=== PATIENT | female | born 1975 | race Caucasian/White ===

== ENCOUNTER 2018-04-21 05:13 | Inpatient (IN) ==
--- NOTE | 2018-04-14 16:19 | HISTORY AND PHYSICAL ---
HISTORY OF PRESENT ILLNESS: Patient is a 42-year-old white female, G3, P2, who will be at 39 and 1/7 weeks gestation with a history of previous x2. The patient also expressed desire for permanent sterilization. The patient has signed Medicaid tubal papers. 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 PAST SURGICAL HISTORY: x2. PAST OBSTETRICAL HISTORY: G3, P2, x2. GYNECOLOGICAL HISTORY: Menarche at age 11. FAMILY HISTORY: Significant for myocardial infarction, as well as diabetes mellitus. SOCIAL HISTORY: Tobacco use none. Alcohol use none. MEDICATIONS: vitamins. ALLERGIES: No known drug allergies. PHYSICAL EXAMINATION: HEIGHT/WEIGHT: Height 5 feet 0 inches, weight 211 pounds. VITAL SIGNS: Blood pressure 143/85, pulse of 85, respirations 20. HEART RATE: 145. HEENT: Pupils equal, round, reactive to light and accommodation. Extraocular movements intact. Oropharynx clear. NECK: Supple. No thyromegaly. LUNGS: Clear to auscultation. HEART: Regular rate and rhythm. ABDOMEN: Gravid nontender. EXTREMITIES: Right arm with limited function, but with mobility, due to a brachial plexus injury. Lower extremities with mild 1+ edema bilaterally and 2+ DTRs bilaterally. ASSESSMENT AND PLAN: A 42-year-old, white female, 3, para 2, at 39 and 1/7 weeks with a history of previous section x2, for elective repeat section and for tubal ligation. Patient counseled about the risks of the surgery, including bleeding, infection, bowel or bladder injury. Patient also counseled about the permanency of tubal ligation, failure rate of 2 to 4 per 1000, as well as the availability of reversible alternatives, such as IUD, control pills, patches, etc. Patient scheduled for section on 04/21/2018. cc: David Landa III, MD
[2018-04-14 17:22] LABS: BASO# 0.03 X1000 (0.0-0.2); BASO% 0.3 % (0.0-0.8); EOS# 0.08 X1000 (0.0-0.7); EOS% 0.9 % (0.0-10.0); HEMATOCRIT 37.5 % (37.0-47.0); HEMOGLOBIN 12.8 g/dL (12.0-16.0); IMM GRAN# 0.07 X1000 (0.0-0.04); IMM GRAN% 0.8 % (0.0-0.5); LYMPH# 1.35 X1000 (1.2-3.4); LYMPH% 14.9 % (20.5-51.1); MCH 30.2 PG (27-31); MCHC 34.1 g/dL (33-37); MCV 88.4 FL (81-99); MONO# 0.31 X1000 (0.11-0.59); MONO% 3.4 % (1.7-9.3); MPV 9.7 FL (7.4-10.4); NEUT# 7.24 X1000 (1.4-6.5); NEUT% 79.7 % (42.2-75.2); PLT 206 X1000 (130-400); RBC 4.24 XMIL (4.2-5.4); RDW 14.3 % (11.5-14.5); WBC 9.08 X1000 (4.8-10.8)
[2018-04-21] MEDS ORDERED: PEPCID PO ONE (05:32)
[2018-04-21] MEDS ORDERED: KEFZOL 1 GM/D5W 1 GM/50 ML IVPB IV PRN (05:32)
[2018-04-21] MEDS: LR 1,000 ML IV SCH ×2 (06:05→06:30)
[2018-04-21 06:17] LABS: URINE SOURCE VOIDED
[2018-04-21 06:20] LABS: BASO# 0.03 X1000 (0.0-0.2); BASO% 0.3 % (0.0-0.8); EOS% 1.1 % (0.0-10.0); HEMATOCRIT 36.5 % (37.0-47.0); HEMOGLOBIN 12.3 g/dL (12.0-16.0); IMM GRAN# 0.07 X1000 (0.0-0.04); IMM GRAN% 0.8 % (0.0-0.5); LYMPH# 1.72 X1000 (1.2-3.4); LYMPH% 18.5 % (20.5-51.1); MCH 29.9 PG (27-31); MCHC 33.7 g/dL (33-37); MCV 88.6 FL (81-99); MONO# 0.53 X1000 (0.11-0.59); MONO% 5.7 % (1.7-9.3); MPV 9.9 FL (7.4-10.4); NEUT# 6.85 X1000 (1.4-6.5); NEUT% 73.6 % (42.2-75.2); PLT 211 X1000 (130-400); RBC 4.12 XMIL (4.2-5.4); RDW 14.4 % (11.5-14.5)
[2018-04-21 06:22] LABS: BILIRUBIN URINE NEGATIVE (NEGATIVE); BLOOD URINE TRACE (NEGATIVE); CLARITY CLEAR (CLEAR); COLOR YELLOW; GLUCOSE URINE NEGATIVE (NEGATIVE); KETONE URINE TRACE mg/dL (NEGATIVE); LEUKOCYTES URINE TRACE (NEGATIVE); NITRITE URINE NEGATIVE (NEGATIVE); PROTEIN URINE TRACE mg/dL (NEGATIVE); UROBILINOGEN URINE NORMAL
[2018-04-21] MEDS ORDERED: ZOFRAN ONE (06:29)
[2018-04-21] MEDS ORDERED: SODIUM CHLORIDE 0.9% 10 ML ONE ×2 (06:29→06:30)
[2018-04-21] MEDS ORDERED: PITOCIN ONE ×2 (06:29→08:01)
[2018-04-21] MEDS ORDERED: NEO-SYNEPHRINE ONE (06:29)
[2018-04-21 06:31] LABS: UR AMPHETAMINES QUAL NONE DETECTED (NONE DETECT); UR BARBITUATES QUAL NONE DETECTED (NONE DETECT); UR BENZODIAZEPIN QUAL NONE DETECTED (NONE DETECT); UR CANNABINOIDS QUAL NONE DETECTED (NONE DETECT); UR COCAINE QUAL NONE DETECTED (NONE DETECT); UR METHADONE QUAL NONE DETECTED (NONE DETECT); UR METHAMPHETAMINE QUAL NONE DETECTED (NONE DETECT); UR OPIATES QUAL NONE DETECTED (NONE DETECT); UR OXYCODONE QUAL NONE DETECTED (NONE DETECT); UR PCP QUAL NONE DETECTED (NONE DETECT); UR PROPOXYPHENE QUAL NONE DETECTED (NONE DETECT); UR TCA QUAL NONE DETECTED (NONE DETECT)
[2018-04-21] MEDS ORDERED: DURAMORPH ONE (06:36)
[2018-04-21] MEDS ORDERED: ATROPINE ONE (07:33)
[2018-04-21] MEDS ORDERED: TORADOL ONE (08:06)
[2018-04-21] MEDS ORDERED: DEMEROL IM PRN (08:21)
[2018-04-21] MEDS ORDERED: DULCOLAX PR PRN (08:21)
[2018-04-21] MEDS ORDERED: MYLICON PO PRN (08:21)
[2018-04-21] MEDS ORDERED: M-M-R II VACCINE SUBQ ONE (08:21)
[2018-04-21] MEDS ORDERED: PHENERGAN IM PRN (08:21)
[2018-04-21] MEDS ORDERED: MOTRIN PO PRN (08:21)
[2018-04-21] MEDS ORDERED: PITOCIN IM PRN (08:21)
[2018-04-21] MEDS ORDERED: HYDROXYZINE IM PRN (08:21)
[2018-04-21] MEDS ORDERED: BOOSTRIX VACCINE IM ONE (08:21)
[2018-04-21] MEDS ORDERED: NORCO-10 PO PRN (08:21)
[2018-04-21] MEDS ORDERED: AMBIEN PO PRN (08:21)
[2018-04-21] MEDS ORDERED: DEMEROL PO PRN ×2 (08:21)
[2018-04-21] MEDS ORDERED: ATARAX PO PRN (08:21)
[2018-04-21] MEDS ORDERED: NORCO-5 PO PRN (08:21)
[2018-04-21] MEDS ORDERED: PITOCIN 20 UNITS/NS 20 UNITS/1,000 ML IV.SOLN IV ONE (08:21)
[2018-04-21] MEDS ORDERED: PITOCIN 10 UNITS/LR 10 UNIT/1,000 ML IV.SOLN IV SCH (08:30)
--- NOTE | 2018-04-21 08:46 | OPERATIVE NOTE ---
PROCEDURE DATE: 04/21/2018 PREOPERATIVE DIAGNOSIS: Intrauterine at 39 and 1/7 weeks with history of section x2, for a repeat low-transverse section and patient desires for permanent sterilization. POSTOPERATIVE DIAGNOSES: 1. Intrauterine at 39 and 1/7 weeks with history of section x2, for a repeat low-transverse section and patient desires for permanent sterilization. 2. Operative delivery of a male , 7 pounds 7 ounces, with Apgars of 9 and 10, at 0725 on 04/21/2018. PROCEDURE PERFORMED: Repeat low-transverse section and bilateral tubal ligation. SURGEON: David Landa III, MD. LACE BURN OUT TENDER: Wlil Duncan MD. ANESTHESIA: Spinal, Dr. Schilling. FINDINGS: Normal-appearing uterus, tubes, and ovaries. Adhesions involving the omentum, bladder, ovaries, and tubes. COMPLICATIONS: None. ESTIMATED BLOOD LOSS: 600 mL. SPECIMENS REMOVED: Right and left fallopian tube segments. DRAINS: Lopez to straight drain. COUNTS: All counts were correct x3. INDICATIONS: Patient is a 42-year-old, white female, G 3, P 2, who is at 39 and 1/7 weeks with a history of prior section x2, for a repeat section. Patient also expressed a desire for permanent sterilization. After delivery, we will do tubal ligation. Patient was counseled about the risks of surgery including bleeding, infection, bowel or bladder injury. Patient also counseled about the permanency of tubal ligation, failure rate of 2-05/999, as well as the availability of reversible alternatives such as IUD, control pills, patches, etc. DESCRIPTION OF PROCEDURE: The patient was taken to the labor and delivery OR. Spinal anesthesia was placed and the patient was placed in a supine position with a roll under her right hip. She was then prepped and draped in a sterile fashion, with placement of a Lopez catheter. Adequate anesthesia was noted by using Allis clamps on the skin. Then a Pfannenstiel skin incision was made on the lower abdomen using a scalpel. This was taken down sharply to the fascial layer. A small julisa was made in the rectus fascia. This was then extended bilaterally by curved Heck scissors, and then blunt and sharp dissection of the superior and inferior aspects of the rectus fascia was accomplished with blunt and sharp dissection. Dissection at the rectus fascia was performed using Heck and Metzenbaum scissors, and entry into the abdominal cavity. Upon entry, it was noted that there was omentum present on the anterior abdominal wall, dissecting the peritoneal incision superiorly and inferiorly with care taken to avoid the bladder. Bladder reflection was created using Metzenbaum scissors. Bladder blade was then placed into the abdominal cavity. A transverse incision was made on the lower uterine segment and entry into the amniotic cavity was accomplished. Clear fluid was noted. The head was then elevated toward the hysterotomy site and with gentle fundal pressure, the head was delivered, bulb suction of the nose and mouth, and then the rest the body was delivered atraumatically with gentle fundal pressure. A double nuchal cord was noted at the time of delivery and was easily reduced. Upon delivery, the umbilical cord was clamped twice and cut. was handed to the nursery nurse in attendance for delivery. Cord blood samples were obtained at this time. Placenta was then manually extracted. The uterus was then exteriorized. A wet lap was placed around the uterus. A dry lap was then used to curette the uterine cavity of clots and debris. The uterine incision was then closed using 0 chromic in a running, locking fashion x1. Good hemostasis was noted. Attention was then turned to the right fallopian tube which was grasped near the isthmus with a Tucker clamp. Small hole was made in the mesosalpinx using electrocautery and #1 plain suture was then used to ligate a portion of the fallopian tube. This was excised using Metzenbaum scissors and handed off as a specimen for pathology. The edges of the fallopian tube were then touched with electrocautery. Good hemostasis was noted. Attention was then turned to the left fallopian tube which was grasped near the isthmus. A small hole was made in the mesosalpinx using electrocautery and #1 plain was then used to ligate a portion of the fallopian tube. This was then excised using Metzenbaum scissors and handed off for specimen to pathology. The edges of the fallopian tube were then touched with electrocautery and, once again, good hemostasis was noted. The posterior cul-de-sac was then irrigated copiously. The uterus was then replaced back into the abdominal cavity. The pericolic gutters were cleansed with a moistened lap sponges. Good hemostasis was noted. Inspection of the uterine incision and bladder reflection also showed good hemostasis. The peritoneal layer was then closed with 2-0 chromic in a running fashion x1. The fascial layer was then closed using 0 PDS in a running fashion x1. The subcutaneous layer was irrigated with saline and then electrocautery was used to obtain hemostasis. The skin was then reapproximated using marvin. Patient tolerated the procedure well and was taken to the recovery room in stable condition. All counts were correct x3. cc: David Landa III, MD
[2018-04-21] MEDS ORDERED: BENADRYL IV PRN (12:07)
[2018-04-21] MEDS ORDERED: ZOFRAN ODT PO PRN (12:07)
[2018-04-21] MEDS ORDERED: ZOFRAN IV PRN ×2 (12:07)
[2018-04-21] MEDS ORDERED: NARCAN INJ PRN (12:07)
[2018-04-21] MEDS: MYLICON PO SCH ×2 (12:26→21:09)
[2018-04-21] MEDS: TORADOL IV SCH ×2 (13:29→20:02)
[2018-04-21] MEDS: PRECARE PO SCH (14:00)
[2018-04-21] MEDS: PITOCIN 10 UNITS/NS 1,000 ML IV SCH (16:22)
[2018-04-21] MEDS: PERICOLACE PO SCH (21:10)
[2018-04-22] MEDS: PITOCIN 10 UNITS/NS 1,000 ML IV SCH (00:15)
[2018-04-22] MEDS: TORADOL IV SCH (02:20)
[2018-04-22 06:12] LABS: BASO# 0.02 X1000 (0.0-0.2); BASO% 0.2 % (0.0-0.8); EOS# 0.07 X1000 (0.0-0.7); EOS% 0.6 % (0.0-10.0); HEMATOCRIT 35.1 % (37.0-47.0); HEMOGLOBIN 11.6 g/dL (12.0-16.0); IMM GRAN# 0.05 X1000 (0.0-0.04); IMM GRAN% 0.4 % (0.0-0.5); LYMPH# 1.14 X1000 (1.2-3.4); LYMPH% 10.2 % (20.5-51.1); MCV 90.7 FL (81-99); MONO# 0.49 X1000 (0.11-0.59); MONO% 4.4 % (1.7-9.3); MPV 10.3 FL (7.4-10.4); NEUT% 84.2 % (42.2-75.2); PLT 181 X1000 (130-400); RBC 3.87 XMIL (4.2-5.4); RDW 14.7 % (11.5-14.5); WBC 11.17 X1000 (4.8-10.8)
[2018-04-22] MEDS ORDERED: LR 1,000 ML IV SCH (08:21)
[2018-04-22] MEDS: PRECARE PO SCH (09:17)
[2018-04-22] MEDS: MYLICON PO SCH ×7 (09:18→20:59)
[2018-04-22] MEDS: PERICOLACE PO SCH (20:59)
[2018-04-23 08:08] VITALS: BP 148/74
[2018-04-23] MEDS ORDERED: FLU VACCINE IM ONE (08:45)
[2018-04-23] MEDS: PRECARE PO SCH (09:10)
[2018-04-23] MEDS: MYLICON PO SCH ×2 (09:11)
--- NOTE | 2018-04-23 20:59 | DISCHARGE SUMMARY ---
ADMISSION DATE: 04/21/2018 DISCHARGE DATE: 04/23/2018 DISCHARGE DIAGNOSES: 1. A 39-week gestation. 2. Prior section. 3. Desire for permanent sterilization. PROCEDURES: Repeat low transverse section with tubal ligation. SUMMARY: A 42-year-old 3, para 2 was admitted at 39 weeks gestation for repeat section with BTL. Her procedure was uncomplicated. Her course was uncomplicated. She was delivered of a male , weight 7 pounds 7 ounces. scores 9 and 10. On the day of discharge her fundus was nontender. Her incision was clean and dry, with marvin intact. She is now discharged home in good condition on the morning of postoperative day #2. DIET: Regular. ACTIVITY: Pelvic rest. MEDICATIONS: Sturgeon 5/325 one p.o. q. 4 hours p.r.n., #24. FOLLOWUP: With Dr. Landa in 1 week for staple removal. cc: MD David De La Paz III, MD
== END 2018-04-23 11:25 | disposition home or self-care (01) | DRG 785 ==
LOC: P.LD 05:13
PROVIDERS: ADMIT Obstetrics & Gynecology; ATTEND Obstetrics & Gynecology
CPT/HCPCS: 80104; 80301; 80305; 81003; 85025; 86592; 86850; 86900; 86901; 90686; 90715; A9270; G0431; G0434; G0477; J0461; J0690; J1885; J2274; J2275; J2370; J2405; J2590; J7120; Q9974